=== PATIENT | male | born 1995 | race Caucasian/White ===

== ENCOUNTER 2019-04-13 08:03 | Emergency (ER) | payer OTHER ==
[2019-04-13 08:19] VITALS: BP 143/90
--- NOTE | 2019-04-13 08:36 | UC ---
Dental HPI - HPI Summary HPI Summary: Fractured a tooth some months ago, with increase in pain about 2 weeks ago. Saw his dentist about 2 weeks ago who prescribed an antibiotic, but something went awry and he never received the prescription. Pain improved, but recurred yesterday with increasing pain, not responsive to ibuprofen 600mg three times in the past 24 hours. Unable to sleep last night. No fever. - History of Current Complaint Chief Complaint: UCDentalProblem Stated Complaint: DENTAL COMPLAINT Time Seen by Provider: 04/13/19 08:29 Hx Obtained From: Patient, Family/Benefits Director - here with mom, visiting from [place]. Onset/Duration: Gradual Onset, Lasting Days - 2 Pain Intensity: 8 Aggravating Factor(s): Cold, Chewing Alleviating Factor(s): OTC Meds Related History: Previous Dental Care on Same Tooth - Allergies/Home Medications Allergies/Adverse Reactions: Allergies Allergy/AdvReac Type Severity Reaction Status Date / Time No Known Allergies Allergy Verified 04/13/19 08:20 Home Medications: Home Medications Ibuprofen TAB* [Motrin TAB* 600 MG] 600 mg PO DAILY PRN 04/13/19 [History Confirmed 04/13/19] PMH/Surg Hx/FS Hx/Imm Hx Previously Healthy: Yes - Surgical History Surgical History: Yes Surgery Procedure, Year, and Place: APPENDECTOMY, 2013, [facility] - Family History Known Family History: Positive: Non-Contributory - Social History Occupation: Employed Full-time Lives: Alone Alcohol Use: Occasionally Substance Use Type: None Smoking Status (MU): Former Smoker Have You Smoked in the Last Year: No Review of Systems All Other Systems Reviewed And Are Negative: Yes Constitutional: Positive: Negative ENT: Positive: Dental Pain Neurological: Negative: Headache Is Patient Immunocompromised?: No Physical Exam Triage Information Reviewed: Yes Appearance: Well-Appearing, Pain Distress - mild to moderate. Vital Signs: Initial Vital Signs Temp 98.4 F 04/13/19 08:15 Pulse 74 04/13/19 08:15 Resp 18 04/13/19 08:15 BP 143/90 04/13/19 08:15 Pulse Ox 100 04/13/19 08:15 Eyes: Positive: Conjunctiva Clear ENT: Positive: Pharynx normal, TMs normal Dental: Positive: Dental Fracture @ - 20, Cervical Lymphadenopathy - + tonsillar and submandibular adenopathy on the left., Other: - mild swelling of the left cheek, no erytehma Neck: Positive: Supple, Nontender, Enlarged Nodes @ - tonsillar and submandibular. Respiratory: Positive: Lungs clear, Normal breath sounds Cardiovascular: Positive: RRR, No Murmur Images Dental: 1 - dental fracture with loss of half of tooth Dental Complaint Course/Dx - Course Course Of Treatment: pencillin for treatment of abscess, increase ibuprofen with additional hydrocodone as needed. - Differential Dx/Diagnosis Differential Diagnosis/Dx: Dental Abscess, Dental Caries, Fractured Tooth Provider Diagnosis: Fractured tooth due to trauma with complication, Dental abscess Discharge - Sign-Out/Discharge Documenting (check all that apply): Patient Departure All imaging exams completed and their final reports reviewed: No Studies - Discharge Plan Condition: Stable Disposition: HOME Prescriptions: Hydrocodone/Acetaminophen [Hydrocodone-Acetamin 5-325 mg] 1 each PO Q6H PRN #10 tablet MDD 4 PRN Reason: Pain - Severe Penicillin VK 500 MG TAB(NF) [Penicillin VK 500 mg Tab] 500 mg PO QID #28 tab Patient Education Materials: Dental Abscess (ED) Referrals: Tono Tyson MD [Primary Care Provider] - Additional Instructions: Ensure that you take the full course of pencillin; the infection should respnd within 2 to 3 days to use of the antibiotic. As reviewed, you plan to arrange definitive treatment with oral surgery. Use ibuprofen 600 to 800mg every 6 hours; take with food and stop if you have increased stomach upset or nausea. You have hydrocodone to use for additional pain control pending the effect of the antibiotic. - Billing Disposition and Condition Condition: STABLE Disposition: Home
== END 2019-04-13 09:01 | disposition home or self-care (01) ==
LOC: UCCORT 08:03
DX: S02.5XXA Fracture of tooth (traumatic), initial encounter for closed fracture (principal); X58.XXXA Exposure to other specified factors, initial encounter; Y92.9 Unspecified place or not applicable; K04.7 Periapical abscess without sinus; Z87.891 Personal history of nicotine dependence
CPT/HCPCS: 99212; G0463

== ENCOUNTER 2019-07-23 14:36 | Emergency (ER) | payer OTHER ==
[2019-07-23 14:50] VITALS: BP 129/77
--- NOTE | 2019-07-23 15:00 | UC ---
General HPI - HPI Summary HPI Summary: Throat swollen, fever on/off for 5 days and body is sore. Sore throat, tired, on and off fever last 5 days. No rash. Some cough, min productive. Had mononucleosis 2 yrs ago. No GI upset. No c/o's. Some h/a , ear congestion, runny nose. - History of Current Complaint Chief Complaint: UCGeneralIllness Stated Complaint: FEVER,SORE THROAT,BODY ACHES Time Seen by Provider: 07/23/19 14:53 Hx Obtained From: Patient Pain Intensity: 7 - Allergy/Home Medications Allergies/Adverse Reactions: Allergies Allergy/AdvReac Type Severity Reaction Status Date / Time No Known Allergies Allergy Verified 07/23/19 14:50 PMH/Surg Hx/FS Hx/Imm Hx Previously Healthy: Yes - Surgical History Surgical History: Yes Surgery Procedure, Year, and Place: APPENDECTOMY, 2013, [facility], right shoulder surgery - Family History Known Family History: Positive: Non-Contributory - Social History Alcohol Use: Occasionally Substance Use Type: None Smoking Status (MU): Former Smoker Have You Smoked in the Last Year: No Review of Systems All Other Systems Reviewed And Are Negative: Yes Constitutional: Positive: Fatigue Skin: Positive: Negative Eyes: Positive: Negative ENT: Positive: Other - see hpi Respiratory: Positive: Cough, Other - see hpi Cardiovascular: Positive: Negative Gastrointestinal: Positive: Negative Genitourinary: Positive: Negative Motor: Positive: Negative Neurovascular: Positive: Negative Musculoskeletal: Positive: Negative Neurological: Positive: Negative Psychological: Positive: Negative Is Patient Immunocompromised?: No Physical Exam Triage Information Reviewed: Yes Appearance: Well-Nourished - sitting up, looks tired but nad Vital Signs: Initial Vital Signs Temp 99.5 F 07/23/19 14:46 Pulse 94 07/23/19 14:46 Resp 14 07/23/19 14:46 BP 129/77 07/23/19 14:46 Pulse Ox 98 07/23/19 14:46 Eye Exam: Normal ENT: Positive: Nasal congestion, TM dull - dull au, Tonsillar swelling, Tonsillar exudate, Uvula midline Neck: Positive: Supple, Nontender, Enlarged Nodes @ - bilat submand + lymphadenopathty Respiratory Exam: Normal Respiratory: Positive: Chest non-tender, Lungs clear, Normal breath sounds, No respiratory distress, No accessory muscle use Cardiovascular Exam: Normal Cardiovascular: Positive: RRR, Pulses Normal, Brisk Capillary Refill Abdominal Exam: Normal, Other - no cvat Abdomen Description: Positive: Nontender Musculoskeletal Exam: Normal - moves x 4 ext's Neurological Exam: Normal - grossly nonfocal Psychological Exam: Normal - conversing easily, nad Skin Exam: Normal - no visible or reported rash. nondiaphoretic. Course/Dx - Course Course Of Treatment: RST negative throat cx sent Reports mononucleosis dx was via blood test 2 yrs ago. As such, consider mononucleosis but doubt. Reviewed coa / tx plan. Questions as posed answered to the best of my ability. - Diagnoses Provider Diagnosis: Acute tonsillitis Discharge ED - Sign-Out/Discharge Documenting (check all that apply): Patient Departure All imaging exams completed and their final reports reviewed: No Studies - Discharge Plan Condition: Stable Disposition: HOME Patient Education Materials: Tonsillitis (ED) Forms: *Work Release Referrals: Tono Tyson MD [Primary Care Provider] - Additional Instructions: Hydrate. Follow up with your primary care physician, per routine. Please seek immediate medical attention for worse or new problems. Please eat yogurt daily and / or take an over the counter probiotic daily at least while taking antibiotic. - Billing Disposition and Condition Condition: STABLE Disposition: Home
== END 2019-07-23 15:23 | disposition home or self-care (01) ==
LOC: UCCORT 14:36
DX: J03.90 Acute tonsillitis, unspecified (principal); R05 Cough; H93.8X9 Other specified disorders of ear, unspecified ear; Z87.891 Personal history of nicotine dependence
CPT/HCPCS: 87070; 87651; 99212; G0463